=== PATIENT | male | born 1965 | race African-American/Black ===

== ENCOUNTER 2017-10-25 13:15 | Inpatient (IN) | payer OTHER ==
[2017-10-25] MEDS: KETOROLAC 30 MG INJ IV (13:27)
[2017-10-25] MEDS ORDERED: morphine 2 MG INJ IV (14:00)
[2017-10-25] MEDS ORDERED: NACL 0.9% 3 ML SYG IV (14:00)
[2017-10-25] MEDS ORDERED: DOCUSATE SODIUM 100 MG CAP PO (14:00)
[2017-10-25] MEDS ORDERED: LORAZEPAM 2 MG INJ IV (14:00)
[2017-10-25] MEDS ORDERED: NITROGLYCERIN (SL) 0.4 MG TAB SL (14:00)
[2017-10-25] MEDS ORDERED: ONDANSETRON 4 MG INJ IV (14:00)
[2017-10-25] MEDS ORDERED: MAGNESIUM HYDROXIDE 30ML CUP PO (14:00)
[2017-10-25 17:01] LABS: CREATINE KINASE 83 IU/L (23-200)
[2017-10-25 17:14] LABS: CK INDEX 1.8
[2017-10-25 17:17] LABS: CK-MB 1.48 ng/ml (0.0-2.4); TROPONIN-I < 0.012 ng/ml (0.00-0.12)
[2017-10-25] MEDS: IOHEXOL 300MG/ML 150 ML BTL (18:20)
[2017-10-25] MEDS: SOD CHLORIDE 0.9% 100 ML (18:20)
[2017-10-25] MEDS: ACETAMINOPHEN 325 MG TAB PO (19:36)
[2017-10-26 05:17] LABS: ADD MAN DIFF? NO
[2017-10-26 05:23] LABS: ABNORMAL IP MESSAGE 1; EOSINOPHILS % 1.9 % (0.0-7.0); HEMATOCRIT 44.9 % (42.0-52.0); HEMOGLOBIN 14.8 g/dl (14.0-18.0); LYMPHOCYTES # 1.2 10^3/ul (0.8-2.9); LYMPHOCYTES % 55.7 % (15.0-51.0); MEAN CORPUSCULAR HEMOGLOBIN 29.9 pg (29.0-33.0); MEAN CORPUSCULAR VOLUME 90.7 fl (82.0-101.0); MEAN PLATELET VOLUME 10.6 fl (7.4-10.4); MONOCYTE # 0.3 10^3/ul (0.3-0.9); MONOCYTES % 15.7 % (0.0-11.0); NEUTROPHIL # 0.6 10^3/ul (1.6-7.5); NEUTROPHILS % 26.2 % (39.0-77.0); PLATELET COUNT 180 10^3/UL (140-415); POSITIVE DIFF @See below; RED BLOOD COUNT 4.95 10^6/ul (4.70-6.10); RED CELL DISTRIBUTION WIDTH 13.1 % (11.5-14.5)
[2017-10-26 05:23] LABS: WHITE BLOOD COUNT 2.1 10^3/ul (4.8-10.8)
[2017-10-26 05:59] LABS: ALANINE AMINOTRANSFERASE 29 IU/L (13-69); ALBUMIN 3.5 g/dl (3.3-4.9); ALBUMIN/GLOBULIN RATIO 0.87; ALKALINE PHOSPHATASE 72 IU/L (42-121); ANION GAP 14 (8-16); ASPARTATE AMINO TRANSFERASE 39 IU/L (15-46); BILIRUBIN,INDIRECT 0.3 mg/dl (0-1.1); BILIRUBIN,TOTAL 0.3 mg/dl (0.2-1.3); BLOOD UREA NITROGEN 12 mg/dl (7-20); CALCIUM 9.4 mg/dl (8.4-10.2); CARBON DIOXIDE 29 mmol/L (21-31); CHLORIDE 104 mmol/L (97-110); CHOL/HDL RATIO 3.8 RATIO; CHOLESTEROL 135 mg/dl (100-200); CREATININE 0.89 mg/dl (0.61-1.24); GLUCOSE 84 mg/dl (70-220); HDL CHOLESTEROL 35 mg/dl (28-71); LDL CHOLESTEROL,CALCULATED 88 mg/dl; MAGNESIUM 1.4 mg/dl (1.7-2.5); POTASSIUM 4.4 mmol/L (3.5-5.1); SODIUM 143 mmol/L (135-144); TOTAL PROTEIN 7.5 g/dl (6.1-8.1); TRIGLYCERIDES 58 mg/dl (0-149)
[2017-10-26] MEDS ORDERED: EMTRICITABINE/TENOFOV ALAFENAM 1 EACH TABLET PO (10:30)
[2017-10-26] MEDS: DOLUTEGRAVIR SODIUM 50 MG TABLET PO (11:42)
[2017-10-26] MEDS: EMTRICITABINE/TENOFOV ALAFENAM 1 EACH TABLET PO (11:43)
[2017-10-26] MEDS: ASPIRIN 81 MG TAB PO (11:43)
[2017-10-26] MEDS: FAMOTIDINE 20 MG TAB PO (11:43)
[2017-10-26] MEDS: DARUNAVIR/COBICISTAT 1 EACH TABLET PO (11:43)
[2017-10-26] MEDS: MAGNESIUM SULFATE 2 GM/50 ML 50 ML IVPB (11:49)
[2017-10-26] MEDS: GABAPENTIN 100 MG CAP PO (22:30)
[2017-10-27] MEDS ORDERED: EMTRICITABINE/TENOFOV ALAFENAM 1 EACH TABLET PO
[2017-10-27] MEDS ORDERED: DARUNAVIR/COBICISTAT 1 EACH TABLET PO
[2017-10-27] MEDS ORDERED: DOLUTEGRAVIR SODIUM 50 MG TABLET PO
[2017-10-27 05:12] LABS: ADD MAN DIFF? NO
[2017-10-27 05:16] LABS: ABNORMAL IP MESSAGE 1; EOSINOPHILS # 0.1 10^3/ul (0.0-0.5); EOSINOPHILS % 2.1 % (0.0-7.0); HEMATOCRIT 44.6 % (42.0-52.0); HEMOGLOBIN 14.8 g/dl (14.0-18.0); LYMPHOCYTES # 1.4 10^3/ul (0.8-2.9); LYMPHOCYTES % 58.8 % (15.0-51.0); MEAN CORPUSCULAR HGB CONC 33.2 g/dl (32.0-37.0); MEAN CORPUSCULAR VOLUME 90.3 fl (82.0-101.0); MEAN PLATELET VOLUME 10.4 fl (7.4-10.4); MONOCYTE # 0.3 10^3/ul (0.3-0.9); MONOCYTES % 12.9 % (0.0-11.0); NEUTROPHIL # 0.6 10^3/ul (1.6-7.5); NEUTROPHILS % 25.3 % (39.0-77.0); PLATELET COUNT 194 10^3/UL (140-415); POSITIVE DIFF @See below; RED BLOOD COUNT 4.94 10^6/ul (4.70-6.10); RED CELL DISTRIBUTION WIDTH 13.3 % (11.5-14.5)
[2017-10-27 05:16] LABS: WHITE BLOOD COUNT 2.3 10^3/ul (4.8-10.8)
[2017-10-27 05:30] LABS: ANION GAP 13 (8-16); BLOOD UREA NITROGEN 9 mg/dl (7-20); CALCIUM 8.7 mg/dl (8.4-10.2); CARBON DIOXIDE 30 mmol/L (21-31); CHLORIDE 104 mmol/L (97-110); CREATININE 1.07 mg/dl (0.61-1.24); GLUCOSE 83 mg/dl (70-220); MAGNESIUM 1.7 mg/dl (1.7-2.5); PHOSPHORUS 2.9 mg/dl (2.5-4.9); POTASSIUM 3.7 mmol/L (3.5-5.1); SODIUM 143 mmol/L (135-144)
[2017-10-27] MEDS: DARUNAVIR/COBICISTAT 1 EACH TABLET PO (09:10)
[2017-10-27] MEDS: FAMOTIDINE 20 MG TAB PO (09:10)
[2017-10-27] MEDS: DOLUTEGRAVIR SODIUM 50 MG TABLET PO (09:10)
[2017-10-27] MEDS: GABAPENTIN 100 MG CAP PO ×3 (09:10→21:29)
[2017-10-27] MEDS: ASPIRIN 81 MG TAB PO (09:12)
[2017-10-27 14:21] LABS: LYMPHOCYTE - % CD4 (HELPER) 10 % (30-61); LYMPHOCYTE - %CD8 (SUPPRESSOR) 68 % (12-42); LYMPHOCYTE - ABSOLUTE 1093 cells/uL (850-3900); LYMPHOCYTE - ABSOLUTE CD4 109 cells/uL (490-1740); LYMPHOCYTE - ABSOLUTE CD8 739 cells/uL (180-1170); LYMPHOCYTE - CD4/CD8 RATIO 0.15 (0.86-5.00)
[2017-10-27] MEDS ORDERED: traMADol 50 MG TAB GTB (14:30)
== END 2017-10-27 23:18 | DRG 977 ==
LOC: E/R 13:15 → MS3 20:26
DX: G62.9 Polyneuropathy, unspecified (principal); B20 Human immunodeficiency virus [HIV] disease; F33.3 Major depressive disorder, recurrent, severe with psychotic symptoms; R45.851 Suicidal ideations; R07.89 Other chest pain; F15.10 Other stimulant abuse, uncomplicated; F10.10 Alcohol abuse, uncomplicated; F17.210 Nicotine dependence, cigarettes, uncomplicated; Z91.19 Patient's noncompliance with other medical treatment and regimen
CPT/HCPCS: 70470; 80048; 80053; 80061; 82550; 82553; 83735; 84100; 84443; 84484; 85025; 86360; 87536; 92610; 93005; 93306; 96374; 99285-25